=== PATIENT | female | born 2000 | race Asian ===

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

== ENCOUNTER → 2020-11-04 | Outpatient (CLI) | payer OTHER ==
--- NOTE | 2020-11-04 11:21 | REP ---
INDICATION: R14.0 BLOATING. COMPARISON: None. TECHNIQUE/RADIOTRACER AND DOSE: Following the intravenous administration of 1.04 mCi technetium 99 M sulfur colloid in 2 scrambled eggs and 6 oz of water, multiple images of the upper abdomen are performed in the anterior and posterior projections for 90 minutes. FINDINGS: The gastric activity is measured. At the end of 90 minutes 62% of the ingested activity has emptied from the stomach. The T1/2 is 73 minutes which is normal. IMPRESSION: Normal gastric emptying time. <Electronically signed by José Miguel Ruff > 11/04/20 1119
== END ==
LOC: M RAD 09:09
PROVIDERS: ATTEND Internal Medicine Gastroenterology
DX: R14.0 Abdominal distension (gaseous) (principal); K59.00 Constipation, unspecified
CPT/HCPCS: 78264; A9541